=== PATIENT | male | born 1960 | race Caucasian/White ===

== ENCOUNTER → 2017-12-06 | Outpatient (CLI) | payer OTHER | LOC: PETCFH 07:43 | PROVIDERS: ATTEND Internal Medicine Gastroenterology | DX: K57.81 Diverticulitis of intestine, part unspecified, with perforation and abscess with bleeding (principal); R68.81 Early satiety; K21.9 Gastro-esophageal reflux disease without esophagitis; L81.8 Other specified disorders of pigmentation; R79.89 Other specified abnormal findings of blood chemistry; E55.9 Vitamin D deficiency, unspecified; K57.90 Diverticulosis of intestine, part unspecified, without perforation or abscess without bleeding; K90.89 Other intestinal malabsorption; E11.9 Type 2 diabetes mellitus without complications; G47.30 Sleep apnea, unspecified; Z86.010 Personal history of colon polyps | CPT/HCPCS: 78264; A9541 ==